=== PATIENT | female | born 1985 | race Caucasian/White ===

== ENCOUNTER 2020-08-29 12:38 | Emergency (ER) | payer MEDICARE ==
[~2020-08-29] VITALS: Ht 162.6 cm; Wt 63.5 kg
[2020-08-29] MEDS ORDERED: SODIUM CHLORIDE 0.9% 1000ML 1,000 ML IV STA (13:03)
[2020-08-29] MEDS ORDERED: METOCLOPRAMIDE HCL 10 MG/2ML VIAL IV NR (13:15)
[2020-08-29] MEDS ORDERED: METHYLPREDNISOLONE SOD SUCC 125 MG/2ML VIAL IV ONE (13:15)
[2020-08-29] MEDS ORDERED: KETOROLAC TROMETHAMINE 30 MG/ML VIAL IV NR (13:15)
[2020-08-29] MEDS ORDERED: DIPHENHYDRAMINE HCL INJ 50 MG/ML VIAL IV NR (13:15)
[2020-08-29] MEDS ORDERED: DIHYDROERGOTAMINE MESYLATE 1 MG/ML AMP IV NR (14:30)
[2020-08-29] MEDS ORDERED: SODIUM CHLORIDE 0.9% 500ML 500 ML IV ONE (14:30)
== END 2020-08-29 16:23 | disposition home or self-care (01) ==
LOC: ER 12:47
DX: G43.909 Migraine, unspecified, not intractable, without status migrainosus (principal)
CPT/HCPCS: 99283; J1110; J1200; J1885; J2765; J2930; J7030